=== PATIENT | female | born 1945 | race Caucasian/White ===

== ENCOUNTER 2018-04-11 09:57 | Emergency (ER) | payer MEDICARE ==
[~2018-04-11] VITALS: Ht 157.5 cm; Wt 54.4 kg
[2018-04-11 09:57] VITALS: BP 173/94
== END 2018-04-11 11:37 | disposition home or self-care (01) ==
LOC: ER 09:59
DX: S42.291A Other displaced fracture of upper end of right humerus, initial encounter for closed fracture (principal); F17.200 Nicotine dependence, unspecified, uncomplicated; Z98.890 Other specified postprocedural states; Z88.6 Allergy status to analgesic agent; W01.0XXA Fall on same level from slipping, tripping and stumbling without subsequent striking against object, initial encounter; Y93.89 Activity, other specified; Y92.89 Other specified places as the place of occurrence of the external cause; Y99.8 Other external cause status
CPT/HCPCS: 73060-TC; A4606; Z7610